=== PATIENT | female | born 1970 | race Caucasian/White ===

== ENCOUNTER 2018-11-22 19:47 | Emergency (ER) | payer SELFPAY ==
[~2018-11-22] VITALS: Ht 160 cm; Wt 68.0 kg
[2018-11-22 20:51] VITALS: BP 131/73
--- NOTE | 2018-11-22 22:32 | NUR ---
Patient discharged to home in stable condition. Written and verbal after care instructions given. Patient verbalizes understanding of instruction. Pt ambulatory with a steady gait
== END 2018-11-22 22:34 | disposition home or self-care (01) ==
LOC: ER 19:52
DX: B02.9 Zoster without complications (principal); Z98.890 Other specified postprocedural states; Z88.6 Allergy status to analgesic agent; Z88.5 Allergy status to narcotic agent